=== PATIENT | female | born 2000 | race Caucasian/White ===

== ENCOUNTER 2022-03-17 08:00 | Outpatient (RCR) | payer BC, SELFPAY | END 2022-09-18 23:59 | disposition home or self-care (01) | PROVIDERS: Visit Provider Nurse Practitioner | DX: M25.531 Pain in right wrist (principal); Z51.89 Encounter for other specified aftercare | CPT/HCPCS: 97033; 97035; 97110; 97140; 97165; 97760; X5282 ==

== ENCOUNTER 2022-04-20 13:06 | Emergency (ER) | payer BC, SELFPAY ==
[2022-04-20 13:14] VITALS: BP 146/90; PULSE 67; RESP 18; TEMP 37.2; O2SAT 97; BMI 22.6
--- NOTE | 2022-04-20 13:16 | CRLHL7_ITS ---
For Patients: As a result of the Cures Act, medical imaging exams and procedure reports are released immediately into your electronic medical record. You may view this report before your referring provider. If you have questions, please contact your health care provider. Indication: Injury. Pain. Technique: Left thumb three views. Comparison: None. Findings: There is flexion about the 1st interphalangeal joint. No visualized fracture. No additional osseous abnormality. No radio-opaque foreign body evident in the soft tissues. Impression: Flexion about the 1st interphalangeal joint may reflect underlying soft tissue injury. No visualized fracture. Dictated by Diego Mendoza MD @ 04/20/2022 2:49:28 PM Dictated by: Diego Mendoza MD @ 04/20/2022 14:49:41 (Electronically Signed)
--- NOTE | 2022-04-20 13:26 | ED_ITS ---
HPI - Extremity Injury (Upper) General Date Seen: 04/20/22 Chief Complaint: Extremity Pain/Injury, Upper Stated Complaint: Thumb Injury Time Seen by Provider: 04/20/22 13:10 Source: patient Mode of arrival: ambulatory Limitations: no limitations History of Present Illness HPI narrative: This 22-year-old female who is a [employer] student injured her left thumb approximately 2 weeks ago, she notices that the discomfort over the IP joint, on the dorsal side of her thumb common her inability to fully extend, with a leg she is able to passively extend it fully, no numbness tingling weakness but but today she should come in and get seen. No previous history of injury, this occurred when she jammed it in a portable stairs. MD complaint: injury to: left Other Extremity Injury: Left: fingers Other injuries: none Place: school Severity: mild Relieving factors: none Context: direct blow Associated symptoms: denies other symptoms Related Data Home Medications Medication Instructions Recorded Confirmed No Known Home Medications 12/20/21 12/20/21 Allergies Allergy/AdvReac Type Severity Reaction Status Date / Time No Known Drug Allergies Allergy Verified 04/20/22 13:19 Review of Systems Status of ROS: Reports: 6 or more systems reviewed and unremarkable except as noted in History and below PFSH PFSH Social History Smoking Status: Never smoker Do you use any of these nicotine containing products: None Second hand tobacco smoke exposure: No How often do you have a drink containing alcohol: 2-4 times a month How many standard drinks containing alcohol do you have on a typical day: 1 or 2 How often do you have six or more drinks on one occasion: Never AUDIT-C Alcohol total score: 2 Non-prescribed substance use: denies use service: No Exam Narrative: Exam Narrative: Examination the left thumb shows her inability to completely extend at the IP joint, she really does not have a lot of tenderness noted around the IP joint or distally to this, she has full flexion of this joint. Her MCP is otherwise nontender as is her thenar eminence sensations normal, cap refill is normal. Const: Vital Signs, click to edit/add: Vital Signs - 24 hr 04/20/22 13:14 Temperature 99 F Pulse Rate [Pulse Oximeter] 67 Respiratory Rate 18 Blood Pressure [Ri ght Upper Arm] 146/90 H Pulse Oximetry 97 Oxygen Delivery Me thod Room Air Course Course Hospital Course: Discussed with her we with the keep her thumb in full extension, we will put her in a stack finger splint, the however follow-up with orthopedics this may end up with surgery anyway, but we should try it least to do the non operative management. She asked if she can see Orthopedics this week which I think is an okay idea. Vital Signs Vital signs: Initial Vital Signs Temperature 99 F 04/20/22 13:14 Temperature Source Temporal Artery Scan 04/20/22 13:14 Pulse Rate 67 04/20/22 13:14 Pulse Rhythm 04/20/22 13:14 Respiratory Rate 18 04/20/22 13:14 Blood Pressure 146/90 H 04/20/22 13:14 Blood Pressure Mean 108 04/20/22 13:14 Blood Pressure Position Supine 04/20/22 13:14 Pulse Oximetry 97 04/20/22 13:14 Oxygen Delivery Method 04/20/22 13:14 Vital Signs Temperature 99 F 04/20/22 13:14 Pulse Rate 67 04/20/22 13:14 Respiratory Rate 18 04/20/22 13:14 Blood Pressure 146/90 H 04/20/22 13:14 Pulse Oximetry 97 04/20/22 13:14 Oxygen Delivery Method 04/20/22 13:14 Temperature 99 F 04/20/22 13:14 Pulse Rate 67 04/20/22 13:14 Respiratory Rate 18 04/20/22 13:14 Blood Pressure 146/90 H 04/20/22 13:14 Pulse Oximetry 97 04/20/22 13:14 Oxygen Delivery Method 04/20/22 13:14 MDM - Extremity Injury (Upper) MDM Narrative Medical decision making narrative: X-ray will be done to rule out fracture but I highly suspect that she has an extensor tendon injury with the lag that she has. Differential Diagnosis Differential diagnosis: Likely sprain and strain of wrist, finger sprain, dislocation of finger and fracture of hand Imaging Data Thumb x-ray: Attestation: I have reviewed the pertinent imaging results. My impression: No evidence of acute abnormality radiologic read pending Discharge Plan Discharge Clinical Impression: Rupture of extensor pollicis longus tendon Patient Disposition: Home, Self-Care Condition: Stable Additional Instructions: Use the splint, follow-up with orthopedics within the next couple weeks, he will need to use the splint both during the day and at night, even when you take care splint off to clean herself you must keep ear thumb in full extension otherwise we go rate back to sq 1. There is no guarantee that this will work, but will give you a chance, to avoid surgery. Prescriptions: No Action No Known Home Medications Follow Up/Referrals: Juanjose De La Garza MD [Staff Physician] - Agusto Villareal MD [Staff Physician] - Provider,Not a Local [Primary Care Provider] - Stand Alone Forms: [employer] Info Instructions
--- NOTE | 2022-04-20 14:30 | ED.NURSE ---
dr. cheema placed L thumb in finger splint
== END 2022-04-20 14:33 | disposition home or self-care (01) ==
PROVIDERS: Emergency Provider Family Medicine
DX: S66.211A Strain of extensor muscle, fascia and tendon of right thumb at wrist and hand level, initial encounter (principal)
CPT/HCPCS: 29130; 73140; 99283

== ENCOUNTER 2022-05-29 22:36 | Emergency (ER) | payer BC, SELFPAY ==
[2022-05-29 22:52] VITALS: BP 118/78; PULSE 105; RESP 18; TEMP 36.7; O2SAT 99; BMI 23.4
--- NOTE | 2022-05-29 23:11 | ED_ITS ---
HPI - General Adult General Time Seen by Provider: 23:11 Date Seen: 05/29/22 Chief complaint: Unspecified Complaint, Adult Stated complaint: Coughing up blood Time Seen by Provider: 05/29/22 22:52 Source: patient and RN notes reviewed Mode of arrival: ambulatory Limitations: no limitations History of Present Illness HPI narrative: Patient is a 22-year-old female that is a college soon in [employer], did talk to her mom with her via phone. She is originally from [place]. She is coming in because she had some blood in her sputum that she coughed up this morning after brushing her teeth and then again tonight. She swallowed a fishbone in a piece of Ernie and a couple days ago. When she swallowed it it felt like it stuck in she points to her throat. She did try coughing to cough it up. Then drank a whole bunch of water and thought it maybe went down. She states she has just felt a little irritated. She did not cough excessively like something went down into her lung. She has not been sick with anything. Her parents advised her to come in when she told them she had a little blood in her sputum. Again denies any other illness symptoms. Can swallow and eat and drink without any difficulty now. Does not feel like there is any difficulty breathing. Related Data Home Medications Medication Instructions Recorded Confirmed No Known Home Medications 12/20/21 05/29/22 Allergies Allergy/AdvReac Type Severity Reaction Status Date / Time No Known Drug Allergies Allergy Verified 05/29/22 22:55 Review of Systems Status of ROS: Reports: 6 or more systems reviewed and unremarkable except as noted in History and below [facility] Medical History (Updated 05/30/22 @ 00:16 by Alyse Richter MD) No significant past medical history Surgical History (Updated 05/29/22 @ 23:01 by Tk Arango RN) No significant past surgical history Social History Smoking Status: Never smoker Do you use any of these nicotine containing products: None Second hand tobacco smoke exposure: No How often do you have a drink containing alcohol: 2-4 times a month How many standard drinks containing alcohol do you have on a typical day: 1 or 2 How often do you have six or more drinks on one occasion: Never AUDIT-C Alcohol total score: 2 Non-prescribed substance use: denies use service: No Exam Const: Vital Signs, click to edit/add: Vital Signs - 24 hr 05/29/22 22:52 Temperature 98.0 F Pulse Rate [Right Pulse Oximeter] 105 H Respiratory Rate 18 Blood Pressure [Ri ght Upper Arm] 118/78 Pulse Oximetry 99 Oxygen Delivery Me thod Room Air Documenting provider has reviewed patient's vital signs: yes Common normals: no apparent distress, average body habitus, oriented x3, no limitations, healthy appearing and alert General appearance: cooperative, comfortable, well kempt and well developed HENMT: Common normals: normocephalic, head/scalp atraumatic, hearing grossly normal bilaterally, external nose normal, moist oral mucous membranes, oropharynx normal (Does have a tonsillar crypt on the left), dentition normal and gingiva normal Head and scalp: normocephalic and atraumatic Nose: external nose normal Other: Speech is normal, not hoarse. I see no evidence of any retained foreign body. Eye: Common normals: PERRL, EOMs intact bilaterally, conjunctivae normal and no scleral icterus Conjunctiva: conjunctiva(e) normal Pupil: PERRL Neck & C-Spine: Common normals: full ROM, no lymphadenopathy and supple Resp: Common normals: normal respiratory effort, no retractions, no use of accessory muscles and clear to auscultation bilaterally Auscultation: clear to auscultation bilaterally Cardio: Common normals: regular rate, regular rhythm, S1 normal heart sound, S2 normal heart sound, no gallops, no clicks and no murmurs Rate: regular rate Rhythm: regular rhythm Heart sounds: S1 normal and S2 normal Neuro: Common normals: oriented x3 Sensorium/orientation: alert Psych: Appearance: well kempt Course Vital Signs Vital signs: Initial Vital Signs Temperature 98.0 F 05/29/22 22:52 Temperature Source Temporal Artery Scan 05/29/22 22:52 Pulse Rate 105 H 05/29/22 22:52 Respiratory Rate 18 05/29/22 22:52 Blood Pressure 118/78 05/29/22 22:52 Blood Pressure Mean 91 05/29/22 22:52 Blood Pressure Position Sitting 05/29/22 22:52 Pulse Oximetry 99 05/29/22 22:52 Oxygen Delivery Method Room Air 05/29/22 22:52 Vital Signs Temperature 98.0 F 05/29/22 22:52 Pulse Rate 105 H 05/29/22 22:52 Respiratory Rate 18 05/29/22 22:52 Blood Pressure 118/78 05/29/22 22:52 Pulse Oximetry 99 05/29/22 22:52 Oxygen Delivery Method Room Air 05/29/22 22:52 Temperature 98.0 F 05/29/22 22:52 Pulse Rate 105 H 05/29/22 22:52 Respiratory Rate 18 05/29/22 22:52 Blood Pressure 118/78 05/29/22 22:52 Pulse Oximetry 99 05/29/22 22:52 Oxygen Delivery Method Room Air 05/29/22 22:52 Medical Decision Making Imaging Data Chest x-ray: Attestation: I have reviewed the pertinent imaging results. My impression: I see no acute cardiopulmonary pathology, no evidence of any foreign body on my preliminary read. Radiologist's impression: Patient: OTILIO SHANNON Facility:?[facility] Patient ID:?[id number] Site Patient ID:?[id number]. Site :?[id number] Study:?XRay Chest 2V-05/30/2022 12:00:21 AM Ordering Physician:?Rober Cullen Final Report: INDICATION: Possible foreign body. TECHNIQUE: Chest 2 views. COMPARISON: None. FINDINGS: Cardiovascular and mediastinum: Heart size and vasculature are normal in caliber and appearance. Lungs and pleural spaces: The lungs are clear. No pleural effusion or pneumothorax. No radiopaque foreign body identified. Bones and soft tissues: Unremarkable. IMPRESSION: No evidence of an acute pulmonary process. No radiopaque foreign body identified. Dictated by Justice Solis MD @ 05/30/2022 12:12:35 AM (Electronic Signature) Discharge Plan Discharge Clinical Impression: Swallowed foreign body Patient Disposition: Home, Self-Care Condition: Stable Additional Instructions: Given that you can swallow/eat/drink in breathe out difficulty, do feel it is safe for you to return home at this time. We are going to see if our ENT specialist Dr. Ayala can see you at some point tomorrow in between his surgical cases. I will have the nurses from our ED try to arrange this. If he does not see any traumatic change or retained foreign body of the fishbone on his examination, it is likely that it passed through your esophagus and through into the intestines. If he finds evidence of the fishbone still being present, he can direct you further as to recommendations. If you have not heard from anybody by 9:00 a.m., call our ER at [phone]. Activity Level: Activity as Tolerated Discharge Diet: Regular Prescriptions: No Action No Known Home Medications Follow Up/Referrals: Provider,Not a Local [Primary Care Provider] - Stand Alone Forms: [employer] Info Instructions
--- NOTE | 2022-05-29 23:24 | CRLHL7_ITS ---
For Patients: As a result of the Cures Act, medical imaging exams and procedure reports are released immediately into your electronic medical record. You may view this report before your referring provider. If you have questions, please contact your health care provider. INDICATION: Possible foreign body. TECHNIQUE: Chest 2 views. COMPARISON: None. FINDINGS: Cardiovascular and mediastinum: Heart size and vasculature are normal in caliber and appearance. Lungs and pleural spaces: The lungs are clear. No pleural effusion or pneumothorax. No radiopaque foreign body identified. Bones and soft tissues: Unremarkable. IMPRESSION: No evidence of an acute pulmonary process. No radiopaque foreign body identified. Dictated by Justice Solis MD @ 05/30/2022 12:12:35 AM (Electronically Signed)
[2022-05-30 00:52] VITALS: BP 114/74; PULSE 99; RESP 18; TEMP 36.7; O2SAT 99
[2022-05-30 00:56] VITALS: BP 114/74; PULSE 99; RESP 18; TEMP 36.7
== END 2022-05-30 00:56 | disposition home or self-care (01) ==
PROVIDERS: Emergency Provider Family Medicine
DX: T18.128A Food in esophagus causing other injury, initial encounter (principal)
CPT/HCPCS: 71046; 99283